=== PATIENT | female | born 1980 | race Caucasian/White ===

== ENCOUNTER 2020-02-15 13:37 | Emergency (ER) | payer MEDICAID, OTHER ==
[~2020-02-15] VITALS: Ht 175.3 cm; Wt 63.5 kg
[2020-02-15 13:44] VITALS: BP 110/59
== END 2020-02-15 14:55 | disposition home or self-care (01) ==
LOC: ER 13:37
DX: L70.0 Acne vulgaris (principal); L01.00 Impetigo, unspecified

== ENCOUNTER 2020-02-25 17:21 | Emergency (ER) | payer OTHER ==
[~2020-02-25] VITALS: Ht 175.3 cm; Wt 63.5 kg
[2020-02-25 18:23] VITALS: BP 124/73
[2020-02-25] MEDS ORDERED: cefTRIAXone SOD 1,000 MG VL IM ONE (19:15)
== END 2020-02-25 20:01 | disposition home or self-care (01) ==
LOC: ER 17:21
DX: L02.413 Cutaneous abscess of right upper limb (principal)
CPT/HCPCS: 96372; 99283; J0696